=== PATIENT | male | born 1975 | race African-American/Black ===

== ENCOUNTER 2022-03-07 18:44 | Emergency (ER) | payer SELFPAY ==
[~2022-03-07] VITALS: Ht 182.9 cm; Wt 89.8 kg
[2022-03-07 18:54] VITALS: BP_SYST 183
--- NOTE | 2022-03-07 18:58 | NUR ---
PT TRIAGED AND ON GURNEY WITH EMT'S, MD AWARE OF MSE NEEDS
[2022-03-07] MEDS ORDERED: DIPHENHYDRAMINE INJ 50 MG/ML VIAL IM ONE (19:00)
[2022-03-07] MEDS ORDERED: HALOPERIDOL LACTATE 5 MG/ML VIAL IM ONE (19:00)
[2022-03-07] MEDS ORDERED: LORazepam 2 MG/ML VIAL IM ONE (19:00)
[2022-03-07] MEDS ORDERED: NACL 0.9% 1,000 ML IV ONE (19:45)
--- NOTE | 2022-03-07 20:15 | NUR ---
PT BIB WITH [id number]. REPORT FROM EMT. PT FOUND AT HOME, FAMILY CALLED 911. PT SMOKED PCP THIS AM. PT A/O X4 ON ARRIVAL. CALM AND COOPERATIVE. VSS "FEELS TIRED". CONTINUED MONITORING.
--- NOTE | 2022-03-07 22:54 | NUR ---
, KIESHA JERNIGAN CALLED INFORMED OF POC. [phone]
--- NOTE | 2022-03-07 23:04 | NUR ---
EMMY FERRARO [phone]
--- NOTE | 2022-03-07 23:28 | NUR ---
PT ATTMEPTED IV ACCESS X2. PT NON COOPERATIVE. RESPONDS TO IV INSERTION, MOVING ARM AND HAND AROUND. ONINUETO MONITOR, VSS
[2022-03-07 23:34] LABS: BASOPHILS % (AUTO) 0.5 % (0.0-2.0); EOSINOPHILS # (AUTO) 0.1 K/uL (0.0-0.4); EOSINOPHILS % (AUTO) 1.2 % (0.0-4.0); HEMATOCRIT 46.3 % (36-54); HEMOGLOBIN 15.6 g/dL (14.0-18.0); LYMPHOCYTES % (AUTO) 27.1 % (20.5-51.5); MEAN CORPUSCULAR HEMOGLOBIN 31 pg (27-31); MEAN CORPUSCULAR HGB CONC 34 % (32-36); MEAN CORPUSCULAR VOLUME 92 fL (79.0-98.0); MONOCYTES # (AUTO) 0.7 K/uL (0.0-1.0); MONOCYTES % (AUTO) 9.1 % (1.7-9.3); NEUTROPHILS # (AUTO) 4.5 K/uL (1.8-7.7); NEUTROPHILS % (AUTO) 62.1 % (40.0-70.0); PLATELET COUNT (AUTO) 203 K/uL (130-430); RED BLOOD CELL COUNT(AUTO) 5.05 MIL/uL (4.2-6.2); WHITE BLOOD COUNT (AUTO) 7.3 K/uL (4.8-10.8)
[2022-03-07 23:41] LABS: ANION GAP 8 (5-15); CALCIUM 9.5 mg/dL (8.4-11.0); CHLORIDE 102 mmol/L (98-107); CREATININE 1.02 mg/dL (0.55-1.30); GLUCOSE 89 mg/dL (70-99); POTASSIUM 3.6 mmol/L (3.5-5.1); SODIUM SERUM 140 mmol/L (136-145); UREA NITROGEN, BLOOD 16 mg/dL (8-21)
[2022-03-07 23:54] LABS: ALANINE AMINOTRANSFERASE 42 U/L (12-78); ALBUMIN 3.9 g/dL (3.4-4.8); ASPARTATE AMINOTRANSFERASE 43 U/L (10-37); TOTAL BILIRUBIN 0.6 mg/dL (0.0-1.0)
[2022-03-08] LABS: ALCOHOL, BLOOD < 3 mg/dL (<10); GFR AFRICAN AMERICAN 102 mL/min (>90)
[2022-03-08 00:01] LABS: ACETAMINOPHEN < 1 ug/mL (1-30)
--- NOTE | 2022-03-08 05:16 | NUR ---
PT AROUSES TO TOUCH AND VOICE. FALLS ASLEEP IEDIATELY. VSS [id number]% ON ROOM AIR
--- NOTE | 2022-03-08 07:26 | NUR ---
PER [employer], PATIENT JUST WAITING FOR DIRECTOR OF VOCATIONAL GUIDANCE.
[2022-03-08 08:24] VITALS: BP_SYST 128
--- NOTE | 2022-03-08 08:25 | NUR ---
Patient given written and verbal discharge instructions and verbalizes understanding. ER MD discussed with patient the results and treatment provided. Patient in stable condition. ID arm band removed. Rx of given. Patient educated on pain management and to follow up with PMD. Pain Scale 0. Opportunity for questions provided and answered. Medication side effect fact sheet provided.
== END 2022-03-08 08:25 | disposition home or self-care (01) ==
LOC: SED 18:44
DX: F16.129 Hallucinogen abuse with intoxication, unspecified (principal); Z88.2 Allergy status to sulfonamides
CPT/HCPCS: 99284; 80053; 85025; 36415; 96372; G0480; J1200; J1630; J2060; G0481; G0482